=== PATIENT | male | born 1965 | race Caucasian/White ===

== ENCOUNTER 2018-03-17 18:12 | Emergency (ER) | payer MEDICAID ==
[~2018-03-17] VITALS: Ht 180.3 cm; Wt 111.6 kg
[2018-03-17 18:32] VITALS: BP 139/89
[2018-03-17] MEDS ORDERED: DERMOPLAST 60ML BOTTLE TOP ONE (19:50)
[2018-03-17] MEDS ORDERED: HYDROcodone-ACET 10/325MG TAB PO ONE (20:15)
[2018-03-17] MEDS ORDERED: TETANUS-DIPTH-ACEL PERTUSSIS 0.5ML SYRG IM ONE (20:15)
[2018-03-17] MEDS ORDERED: SILVER SULFADIAZINE 1 % TOPICAL CREAM 50GM TOP ONE (20:15)
[2018-03-17] MEDS ORDERED: cefTRIAXone SOD 1,000 MG VL IM ONE (20:15)
== END 2018-03-17 20:44 | disposition home or self-care (01) ==
LOC: ER 18:12
DX: T22.222A Burn of second degree of left elbow, initial encounter (principal); T31.0 Burns involving less than 10% of body surface; X97.XXXA Assault by smoke, fire and flames, initial encounter; Y93.89 Activity, other specified; Y99.8 Other external cause status; Y92.89 Other specified places as the place of occurrence of the external cause
CPT/HCPCS: 90715; 99283; J0696

== ENCOUNTER 2018-03-18 18:50 | Emergency (ER) | payer MEDICAID, OTHER ==
[~2018-03-18] VITALS: Ht 180.3 cm; Wt 111.6 kg
[2018-03-18 20:17] VITALS: BP 138/85
[2018-03-18] MEDS ORDERED: cefTRIAXone SOD 1,000 MG VL IM ONE (20:30)
== END 2018-03-18 21:53 | disposition home or self-care (01) ==
LOC: ER 18:50
DX: T22.1 Burn of first degree of shoulder and upper limb, except wrist and hand (principal); T31.0 Burns involving less than 10% of body surface; X08.8XXD Exposure to other specified smoke, fire and flames, subsequent encounter
CPT/HCPCS: 96372; 99283; J0696

== ENCOUNTER 2018-04-02 12:35 | Inpatient (IN) | payer MEDICAID, OTHER ==
[~2018-04-02] VITALS: Ht 180.3 cm; Wt 114.7 kg
[2018-04-02] MEDS ORDERED: IOHEXOL 300 MG/ML 75ml BOTTLE IJ ONE (13:28)
[2018-04-02 13:47] LABS: Basophils # (auto) 0.1 uL; Basophils % (auto) 1.2 % (0.0-2.0); Eosinophils # (auto) 0.2 uL; Eosinophils % (auto) 2.5 % (0.0-7.0); Hemoglobin 13.1 g/dL (13.5-17.5); Lymphocytes # (auto) 1.8 uL; Lymphocytes % (auto) 21.2 % (10.0-50.0); Mean Corpuscular Hgb Conc. 33.6 g/dL (32.0-36.0); Mean Corpuscular Volume 89.4 fL (80.0-100.0); Monocytes # (auto) 0.7 uL; Monocytes % (auto) 8.9 % (0.0-12.0); Neutrophils # (auto) 5.5 uL; Neutrophils % (auto) 66.2 % (37.0-80.0); Platelet Count (auto) 334 10^3/uL (140-450); Red Blood Cells 4.36 10^6/uL (4.5-5.90); Red Cell Distribution Width 13.3 % (11.8-14.3); White Blood Cell 8.3 10^3/uL (4.4-10.8)
[2018-04-02 14:02] LABS: Albumin 3.6 g/dL (3.4-5.0); BUN/Creatinine Ratio 15.4; Calcium 8.5 mg/dL (8.5-10.1); Potassium 3.5 mmol/L (3.5-5.1)
[2018-04-02 14:04] LABS: Bilirubin, Total 0.4 mg/dL (0.2-1.0); Total Protein 6.9 g/dL (6.4-8.2)
[2018-04-02] MEDS ORDERED: metroNIDAZOLE 500MG/100ML 100 ML IV ONE (14:45)
[2018-04-02] MEDS ORDERED: KETOROLAC TROMETH 30 MG/ML 1ML VIAL IV PRN (15:00)
[2018-04-02] MEDS ORDERED: ACETAMINOPHEN 500 MG TAB PO PRN (15:00)
[2018-04-02] MEDS ORDERED: TEMAZEPAM 15 MG CAP PO PRN (15:00)
[2018-04-02] MEDS ORDERED: NITROGLYCERIN 0.4 MG SL TAB SL PRN (15:00)
[2018-04-02] MEDS ORDERED: cefTRIAXone 1GM/10ml IVPUSH 10 ML IV ONE (15:00)
[2018-04-02] MEDS ORDERED: MORPHINE SULF INJ 2 MG/ML SYRINGE 1ML IV PRN (15:00)
[2018-04-02] MEDS ORDERED: traMADol HCL 50 MG TAB PO PRN (15:00)
[2018-04-02] MEDS ORDERED: PROMETHAZINE HCL 25 MG/ML 1ML IV PRN (15:00)
[2018-04-02] MEDS ORDERED: LORazepam 0.5 MG TAB PO PRN (15:00)
[2018-04-02] MEDS: SODIUM CHLORIDE 0.9% 1,000 ML IV SCH (15:09)
[2018-04-02] MEDS: PANTOPRAZOLE 40 MG TAB PO SCH (15:24)
[2018-04-02] MEDS: ENOXAPARIN SOD 40 MG/0.4 ML SYRINGE SC SCH (15:24)
[2018-04-02 15:25] LABS: Amylase 47 U/L (25-115); Lipase 122 U/L (73-393)
[2018-04-02 17:22] LABS: Urine Bacteria NONE SEEN /hpf (None Seen); Urine Blood Negative /uL (Negative); Urine WBC 2 /hpf (0 - 3)
[2018-04-02 17:23] VITALS: BP 143/93
[2018-04-02] MEDS ORDERED: BUP100T PO (17:48)
[2018-04-02] MEDS ORDERED: QUET150T2 PO (17:48)
[2018-04-02 20:00] VITALS: BP 129/90
[2018-04-02] MEDS: metroNIDAZOLE 500MG/100ML 100 ML IV SCH (21:30)
[2018-04-02 22:00] VITALS: BP 129/90
[2018-04-03] MEDS: metroNIDAZOLE 500MG/100ML 100 ML IV SCH ×4 (03:08→21:18)
[2018-04-03] MEDS: SODIUM CHLORIDE 0.9% 1,000 ML IV SCH ×3 (03:09→21:18)
[2018-04-03 04:57] VITALS: BP 142/86
[2018-04-03 09:00] VITALS: BP 152/91
[2018-04-03] MEDS: cefTRIAXone 1GM/10ml IVPUSH 10 ML IV SCH (09:24)
[2018-04-03] MEDS: QUEtiapine FUMARATE 100 MG TAB PO SCH (09:24)
[2018-04-03] MEDS: PANTOPRAZOLE 40 MG TAB PO SCH (09:24)
[2018-04-03] MEDS: ENOXAPARIN SOD 40 MG/0.4 ML SYRINGE SC SCH (09:25)
[2018-04-03 12:21] VITALS: BP 121/79
[2018-04-03 16:45] VITALS: BP 110/73
[2018-04-03 21:42] VITALS: BP 113/72
[2018-04-04] MEDS: metroNIDAZOLE 500MG/100ML 100 ML IV SCH ×3 (03:07→15:00)
[2018-04-04 04:48] VITALS: BP 116/79
[2018-04-04 06:14] LABS: Basophils # (auto) 0 uL; Basophils % (auto) 0.4 % (0.0-2.0); Eosinophils # (auto) 0.2 uL; Eosinophils % (auto) 4.2 % (0.0-7.0); Hematocrit 39.1 % (41.0-53.0); Hemoglobin 13.1 g/dL (13.5-17.5); Lymphocytes # (auto) 1.4 uL; Lymphocytes % (auto) 24.5 % (10.0-50.0); Mean Corpuscular Hgb Conc. 33.5 g/dL (32.0-36.0); Mean Corpuscular Volume 89.7 fL (80.0-100.0); Monocytes # (auto) 0.6 uL; Monocytes % (auto) 11.2 % (0.0-12.0); Neutrophils # (auto) 3.4 uL; Neutrophils % (auto) 59.7 % (37.0-80.0); Platelet Count (auto) 316 10^3/uL (140-450); Red Blood Cells 4.35 10^6/uL (4.5-5.90); Red Cell Distribution Width 13.3 % (11.8-14.3); White Blood Cell 5.7 10^3/uL (4.4-10.8)
[2018-04-04] MEDS: SODIUM CHLORIDE 0.9% 1,000 ML IV SCH (06:33)
[2018-04-04 06:50] LABS: Albumin 3.1 g/dL (3.4-5.0); BUN/Creatinine Ratio 11.7; Bilirubin, Total 0.3 mg/dL (0.2-1.0); Calcium 7.8 mg/dL (8.5-10.1); Total Protein 6.2 g/dL (6.4-8.2)
[2018-04-04 08:16] VITALS: BP 118/76
[2018-04-04] MEDS: ENOXAPARIN SOD 40 MG/0.4 ML SYRINGE SC SCH (10:00)
[2018-04-04] MEDS: cefTRIAXone 1GM/10ml IVPUSH 10 ML IV SCH (10:18)
[2018-04-04] MEDS: QUEtiapine FUMARATE 100 MG TAB PO SCH (10:18)
[2018-04-04] MEDS: PANTOPRAZOLE 40 MG TAB PO SCH (10:18)
[2018-04-04 12:23] VITALS: BP 114/71
== END 2018-04-04 16:15 | disposition home or self-care (01) | DRG 254 ==
LOC: ER 12:35 → TELE 12:36 → TELE-CENTR 17:17
PROVIDERS: ADMIT Internal Medicine; ATTEND Internal Medicine
DX: K43.9 Ventral hernia without obstruction or gangrene (principal); E11.22 Type 2 diabetes mellitus with diabetic chronic kidney disease; E66.01 Morbid (severe) obesity due to excess calories; I12.9 Hypertensive chronic kidney disease with stage 1 through stage 4 chronic kidney disease, or unspecified chronic kidney disease; N18.9 Chronic kidney disease, unspecified; F41.9 Anxiety disorder, unspecified; F17.210 Nicotine dependence, cigarettes, uncomplicated; E78.5 Hyperlipidemia, unspecified; K59.00 Constipation, unspecified; Z90.81 Acquired absence of spleen; Z83.3 Family history of diabetes mellitus; Z68.35 Body mass index [BMI] 35.0-35.9, adult
CPT/HCPCS: 36415; 74177; 80053; 81001; 82150; 83605; 83690; 85025; 87040; 87081; 93005; 94761; 96361; 96365; 96372; 96375; J1885; J3490; Q9967

== ENCOUNTER 2018-06-17 07:09 | Emergency (ER) | payer MEDICAID ==
[~2018-06-17] VITALS: Ht 180.3 cm; Wt 104.3 kg
[~2018-06-17 07:09] MED LIST: BUP100T PO; QUET150T2 PO
[2018-06-17 07:21] VITALS: BP 123/82
== END 2018-06-17 08:55 | disposition left against medical advice (07) ==
LOC: ER 07:13
DX: R10.9 Unspecified abdominal pain (principal); Z53.21 Procedure and treatment not carried out due to patient leaving prior to being seen by health care provider

== ENCOUNTER 2018-07-02 19:41 | Emergency (ER) | payer MEDICAID ==
[~2018-07-02] VITALS: Ht 180.3 cm; Wt 102.1 kg
[2018-07-02 21:02] LABS: Basophils # (auto) 0.1 uL; Basophils % (auto) 0.9 % (0.0-2.0); Eosinophils # (auto) 0.2 uL; Eosinophils % (auto) 2.2 % (0.0-7.0); Hematocrit 40.9 % (41.0-53.0); Hemoglobin 13.9 g/dL (13.5-17.5); Lymphocytes # (auto) 1.8 uL; Lymphocytes % (auto) 19.6 % (10.0-50.0); Mean Corpuscular Hemoglobin 30.6 pg (28.0-32.0); Mean Corpuscular Hgb Conc. 33.9 g/dL (32.0-36.0); Mean Corpuscular Volume 90.4 fL (80.0-100.0); Monocytes # (auto) 0.5 uL; Monocytes % (auto) 5.9 % (0.0-12.0); Neutrophils # (auto) 6.4 uL; Neutrophils % (auto) 71.4 % (37.0-80.0); Nucleated Red Blood Cells % 0.1 %; Platelet Count (auto) 416 10^3/uL (140-450); Red Blood Cells 4.53 10^6/uL (4.5-5.90); Red Cell Distribution Width 13.6 % (11.8-14.3)
[2018-07-02 21:22] LABS: Albumin 3.5 g/dL (3.4-5.0); BUN/Creatinine Ratio 8.5; Bilirubin, Total 0.1 mg/dL (0.2-1.0); Calcium 8.5 mg/dL (8.5-10.1); Potassium 3.7 mmol/L (3.5-5.1); Total Protein 7.2 g/dL (6.4-8.2)
[2018-07-03 07:36] LABS: Urine Bacteria NONE SEEN /hpf (None Seen); Urine Blood Negative /uL (Negative); Urine Mucus FEW (None Seen); Urine Specific Gravity 1.022 (1.001-1.035); Urine WBC 1 /hpf (0 - 3)
[2018-07-03 09:35] VITALS: BP 151/74
== END 2018-07-03 10:01 | disposition home or self-care (01) ==
LOC: ER 19:41
DX: K43.9 Ventral hernia without obstruction or gangrene (principal); K40.90 Unilateral inguinal hernia, without obstruction or gangrene, not specified as recurrent; R59.1 Generalized enlarged lymph nodes; Z79.899 Other long term (current) drug therapy
CPT/HCPCS: 36415; 74176; 80053; 81001; 82150; 83690; 85025

== ENCOUNTER 2021-07-25 15:27 | Emergency (ER) | payer MEDICAID ==
[~2021-07-25] VITALS: Ht 177.8 cm; Wt 95.3 kg
[~2021-07-25 15:27] MED LIST changes: -BUP100T PO; +BUPR100T15 PO
[2021-07-25 15:43] VITALS: BP 121/77
[2021-07-25] MEDS ORDERED: ZINC SULFATE 220mg CAP or TAB PO ONE (15:45)
[2021-07-25] MEDS ORDERED: ASCORBIC ACID 500 MG TAB PO ONE (15:45)
[2021-07-25] MEDS ORDERED: methylPREDNISolone SOD SUCC 125 MG/2 ML VL IV ONE (15:45)
[2021-07-25] MEDS ORDERED: CHOLECALCIFEROL (VITD3) 2,000 UNIT CAP/TAB PO ONE (15:45)
[2021-07-25 15:57] LABS: Basophils # (auto) 0 10 ^3/uL (0-0.2); Basophils % (auto) 0.3 % (0.0-2.0); Eosinophils # (auto) 0.1 10 ^3/uL (0-0.8); Hematocrit 40.1 % (41.0-53.0); Hemoglobin 13.9 g/dL (13.5-17.5); Lymphocytes # (auto) 0.9 10 ^3/uL (0.4-5.4); Mean Corpuscular Hemoglobin 30.8 pg (28.0-32.0); Mean Corpuscular Hgb Conc. 34.6 g/dL (32.0-36.0); Mean Corpuscular Volume 89.1 fL (80.0-100.0); Monocytes % (auto) 17.5 % (0.0-12.0); Neutrophils # (auto) 3.5 10 ^3/uL (1.6-8.6); Neutrophils % (auto) 64.2 % (37.0-80.0); Nucleated Red Blood Cells % 0.1 %; Red Blood Cells 4.51 10^6/uL (4.5-5.90); Red Cell Distribution Width 12.8 % (11.8-14.3); White Blood Cell 5.5 10^3/uL (4.4-10.8)
[2021-07-25 16:19] LABS: Albumin 2.9 g/dL (3.4-5.0); Anion Gap 9 (5-15); Blood Urea Nitrogen 5 mg/dL (7-18); Calcium 8.6 mg/dL (8.5-10.1); Carbon Dioxide 22 mmol/L (21-32); Chloride 100 mmol/L (98-107); Glucose 96 mg/dL (74-106); Potassium 3.5 mmol/L (3.5-5.1); Sodium 131 mmol/L (136-145)
[2021-07-25 16:26] LABS: Alanine Aminotransferase 47 U/L (16-61); Alkaline Phosphatase 162 U/L (45-117); Aspartate Aminotransferase 27 U/L (15-37); BUN/Creatinine Ratio 5.3; Bilirubin, Total 0.4 mg/dL (0.2-1.0); GFR African American 108 mL/min; GFR Non-African American 89 mL/min; Total Protein 7.4 g/dL (6.4-8.2)
== END 2021-07-25 20:44 | disposition home or self-care (01) ==
LOC: EDUNIT# 15:27 → EDBD 15:27 → ER 15:27
DX: J96.00 Acute respiratory failure, unspecified whether with hypoxia or hypercapnia (principal); J18.9 Pneumonia, unspecified organism; F17.210 Nicotine dependence, cigarettes, uncomplicated; F12.10 Cannabis abuse, uncomplicated; K21.9 Gastro-esophageal reflux disease without esophagitis; E78.5 Hyperlipidemia, unspecified; I10 Essential (primary) hypertension; Z86.73 Personal history of transient ischemic attack (TIA), and cerebral infarction without residual deficits; Z20.822 Contact with and (suspected) exposure to COVID-19
CPT/HCPCS: 36415; 71045; 80053; 82728; 83605; 84484; 85025; 85379; 86141; 87040; 87426